=== PATIENT | female | born 1965 | race Caucasian/White ===

== ENCOUNTER → 2024-03-23 14:33 | Outpatient (REF) | payer BC, SELFPAY | LOC: WDC 14:33 | PROVIDERS: ATTENDING PHYSICIAN Obstetrics & Gynecology Gynecology; FAMILY PHYSICIAN Family Medicine | DX: Z12.31 Encounter for screening mammogram for malignant neoplasm of breast (principal); Z01.419 Encounter for gynecological examination (general) (routine) without abnormal findings | CPT/HCPCS: 77063; 77067 ==

== ENCOUNTER → 2024-07-16 10:03 | Outpatient (REF) | payer BC, SELFPAY | LOC: HWRAD 10:03 | PROVIDERS: ATTENDING PHYSICIAN Nurse Practitioner | DX: R35.0 Frequency of micturition (principal); N20.0 Calculus of kidney | CPT/HCPCS: 74176 ==

== ENCOUNTER → 2024-08-27 12:07 | Outpatient (REF) | payer BC, SELFPAY | LOC: MRI 3T 12:07 | PROVIDERS: ATTENDING PHYSICIAN Psychiatry & Neurology Neurology; FAMILY PHYSICIAN Family Medicine | DX: G35 Multiple sclerosis (principal) | CPT/HCPCS: 70553; 72156; A9575 ==

== ENCOUNTER → 2024-09-19 12:11 | Outpatient (REF) | payer BC, SELFPAY | LOC: MRI 3T 12:11 | PROVIDERS: ATTENDING PHYSICIAN Psychiatry & Neurology Neurology; FAMILY PHYSICIAN Family Medicine | DX: G35 Multiple sclerosis (principal) | CPT/HCPCS: 72157 ==

== ENCOUNTER → 2025-05-03 07:59 | Outpatient (REF) | payer BC, SELFPAY | LOC: WDC 07:59 | PROVIDERS: ATTENDING PHYSICIAN Obstetrics & Gynecology Gynecology; FAMILY PHYSICIAN Family Medicine | DX: Z12.39 Encounter for other screening for malignant neoplasm of breast (principal); Z12.31 Encounter for screening mammogram for malignant neoplasm of breast | CPT/HCPCS: 77063; 77067 ==

== ENCOUNTER 2025-05-14 19:05 | Emergency (ER) | payer BC, SELFPAY ==
[2025-05-14 19:05] VITALS: BMI 26.1
[2025-05-14 19:07] VITALS: BP 86/59
[2025-05-14 19:12] LABS: Glucose - Point of Care 141 mg/dl (70-99)
[2025-05-14 19:27] LABS: Venous Blood Gas B.E. 0.1 mmol/L (-4 to +4); Venous Blood Gas HCO3 27.7 mmol/L (22-27); Venous Blood Gas pCO2 55 mmHg (35-48); Venous Blood Gas pH 7.31 (7.32-7.43); Venous Blood Gas pO2 36 mmHg (30-50)
[2025-05-14 19:40] LABS: Lactic Acid 1.4 mmol/L (0.7-2.0)
[2025-05-14 19:41] LABS: ALT (SGPT) 35 U/L (0-35); AST (SGOT) 29 U/L (14-36); Albumin 4.8 g/dl (3.5-5.0); Alkaline Phosphatase 95 U/L (38-126); Blood Urea Nitrogen 23 mg/dl (7-17); Calcium 10.3 mg/dl (8.4-10.2); Carbon Dioxide 26 mmol/L (22-30); Chloride 103 mmol/L (98-107); Glucose 158 mg/dl (70-99); Lipase 41 U/L (23-300); Potassium 4.8 mmol/L (3.5-5.1); Sodium 138 mmol/L (135-145); Total Bilirubin 1.8 mg/dl (0.2-1.3); eGFR 57.88
[2025-05-14 19:47] LABS: B-Hydroxybutyrate 0.62 mmol/L (0.02-0.27)
[2025-05-14] MEDS: NSS 1000 IV (20:40)
[2025-05-14] MEDS: ZOFRAN 4 MG IV (21:06)
[2025-05-14 21:19] LABS: Creatine Phosphokinase 44 U/L (30-135)
[2025-05-14 21:20] LABS: % Basophils 0.4 % (0-2); % Immature Granulocytes 0.2 % (0-0.5); % Lymphocytes 2.7 % (20.5-51.1); % Monocytes 12.3 % (1.7-9.3); % Neutrophils 83.4 % (42.2-75.2); Absolute Basophils 0.1 10^3/uL (0-0.2); Absolute Eosinophils 0.1 10^3/uL (0-0.7); Absolute Lymphocytes 0.4 10^3/uL (1.2-3.4); Absolute Monocytes 1.6 10^3/uL (0.1-0.6); Hematocrit 40.3 % (37.0-47.0); Hemoglobin 14.1 g/dL (12.0-16.0); Mean Corpuscular Hgb 30.1 pg (27.0-31.0); Mean Corpuscular Volume 86.1 fL (81.0-99.0); Mean Platelet Volume 11.6 fL (7.4-10.4); Nucleated Red Blood Cells % 0 %; Platelet Count 252 10^3/uL (130-400); Red Blood Cell Count 4.68 10^6/uL (4.20-5.40); Red Cell Dist. Width 12.4 % (11.5-14.5); White Blood Cell Count 13.2 10^3/uL (4.8-10.8)
[2025-05-14 22:00] VITALS: BP 137/71
--- NOTE | 2025-05-14 22:13 | ED.GENMED ---
History of Present Illness
General
Chief Complaint: Abdominal Symptoms
Time Seen by Provider: 05/14/25 20:18
History of Present Illness
History of Present Illness:
60-year-old female with history of MS and diabetes presenting for nausea, vomiting, diarrhea. Patient reports that symptoms started this morning around 10 AM after she ate breakfast at [employer]. She has been unable to tolerate p.o. Denies any
blood in the vomit or the diarrhea. Denies any significant abdominal pain. Denies fever or sick contacts. Denies chest pain or difficulty breathing. Denies any abdominal surgeries. Notes some generalized weakness. Denies additional acute
medical complaints
Past History
Past History
ED Past Medical History: HTN, IDDM and Other (multiple sclerosis, probable relapsing remitting type)
ED Past Surgical History: Orthopedic
Social History
Tobacco: Non-smoker
Alcohol: None
Drug: None
Personal: Single
Employment: Employed ([employer])
Family History
Family History: Other (reviewed and noncontributory)
Phy Exam
Physical Exam
Physical Exam:
General: Well-appearing, no clinical signs of dehydration, nontoxic and in no acute distress
HEENT: protecting airway
Neck: appears supple
CV: Normal heart rate, regular rhythm
Resp: No accessory muscle use, no increased work of breathing
Abd: no distension
Extremities: No deformities, no swelling, no erythema
Neuro: alert, no focal neurologic deficit
: deferred
Rectal: deferred
Psych: Normal affect
Skin: Intact
Course
Orders/Labs/Results
Orders:
Orders
05/14/25 19:21
B-Hydroxybutyrate Urgent
Comprehensive Metabolic Panel Urgent
Creatine Phosphokinase Urgent
Comment: ADD ON
Lactic Acid Urgent
Lipase Urgent
Venous Blood Gas Urgent
%Oxygen/Room Air: room air
05/14/25 20:40
0.9% Sodium Chloride 1000 ml [Nss] 1,000 ml IV BOLUS
05/14/25 20:46
Add On- LAB Urgent
Tests Added?: CPK
Ondansetron Injectable [Zofran] 4 mg IV NOW STA
05/14/25 21:12
Complete Blood Count/With Diff Urgent
05/14/25 21:19
C DIFF [C difficile Antigen & Toxins] Urgent
CALVIN Source: Feces/Stool
Specimen Description:
Date Specimen was Collected: 05/14/25
Time Specimen was Collected: 21:18
Stool Culture Urgent
CALVIN Source: Feces/Stool
Specimen Description:
Date Specimen was Collected: 05/14/25
Time Specimen was Collected: 21:18
Abnormal Lab Results
05/14/25 05/14/25 05/14/25
19:10 19:21 21:12
WBC 13.2 H 10^3/uL
(4.8-10.8)
MPV 11.6 H fL
(7.4-10.4)
Absolute Neuts (auto) 11.0 H 10^3/uL
(1.4-6.5)
Absolute Lymphs (auto) 0.4 L 10^3/uL
(1.2-3.4)
Absolute Monos (auto) 1.6 H 10^3/uL
(0.1-0.6)
Neutrophils % 83.4 H %
(42.2-75.2)
Lymphocytes % 2.7 L %
(20.5-51.1)
Monocytes % 12.3 H %
(1.7-9.3)
VBG pH 7.31 L
(7.32-7.43)
VBG pCO2 55 H mmHg
(35-48)
VBG HCO3 27.7 H mmol/L
(22-27)
BUN 23 H mg/dl
(7-17)
Creatinine 1.1 H mg/dL
(0.6-1.0)
Glucose 158 H mg/dl
(70-99)
Calcium 10.3 H mg/dl
(8.4-10.2)
Total Bilirubin 1.8 H mg/dl
(0.2-1.3)
B-Hydroxybutyrate 0.62 H mmol/L
(0.02-0.27)
POC Glucose 141 H mg/dl
(70-99)
05/14/25 21:12
05/14/25 19:21
Vital Signs
Initial and Last Documented VS:
Initial Vital Signs
Temp Pulse Resp BP Pulse Ox
98.0 F 97 20 86/59 96
05/14/25 19:07 05/14/25 19:07 05/14/25 19:07 05/14/25 19:07 05/14/25 19:07
Last Documented Vital Signs
Temp Pulse Resp BP Pulse Ox
98.1 F 93 16 137/71 98
05/14/25 22:00 05/14/25 22:00 05/14/25 22:00 05/14/25 22:00 05/14/25 22:00
MDM/Problems Addressed
MDM/Problems Addressed:
60-year-old female with history of MS and diabetes presenting to the emergency department for nausea, vomiting, diarrhea, which started after eating breakfast at [employer] this morning. Vital signs significant for low blood pressure.
On exam, patient with mild dryness to her mucous membranes, otherwise no acute distress. Unremarkable cardiac, pulmonary abdominal exam. Patient afebrile, nontoxic. Symptoms appear consistent with viral gastroenteritis, suspected to be foodborne.
Will plan for laboratory analysis. Will treat with IV fluids and Zofran and reassess for improvement.
22:25 - Labs unremarkable. No sign of DKA dehydration. Mild elevation of beta hydroxy butyrate. On reassessment, patient notes that she is feeling better. Blood pressure is normalized. She is tolerating p.o. At this time feel that she is
stable for discharge with continued outpatient supportive therapy. Patient did have liquidy stool, sent for stool culture.
*Pulse Oximetry
SaO2: 98
Oxygen Mode of Delivery: Room air
*Critical Care Note
Total Time (30-74mins, 75-104mins- exclusive of procedures): Not Applicable
ED Attending Note
-
Portions of this chart may have been created with voice recognition software.� Occasional wrong word or��sound alike� substitutions may have occurred due to the inherent limitations of voice recognition software.
Discharge Plan
Departure
Prescriptions:
No Action
Insulin Pump [Patient's Own Insulin Pump:] 1 UNITS Pump.Resvr
0 ea SC .CONTINUOUS
Patient Comments:
05/14/25, pt. uses Novolog insulin, per pt., she uses roughly '13 units a day' and replaces her cartridge every 3 days and patient has a Dexcom Sensor. Pt. changed her insulin yesterday (05/13/2025). Pt. normally changes her insulin when she has
around 20 units left in her cartridge.
Kesimpta Pen 20 mg/0.4 mL pen injector
20 mg SC MONTHLY
acetaminophen [Tylenol Extra Strength] 500 mg Tablet
500 mg PO DAILYPRN PRN (Reason: mild pain)
Patient Comments:
05/14/2025, takes with her Kesimpta per pt.
ferrous sulfate 325 mg (65 mg iron) Tablet
325 mg PO DAILY PRN (Reason: headaches)
Ex-Lax Maximum Strength 25 mg Tablet
25 mg PO DAILY PRN (Reason: constipation)
carboxymethylcellulose sodium [Refresh] 1 % Drops, Liquid Gel
1 drp BOTH EYES QIDPRN PRN (Reason: dry eyes)
cholecalciferol (vitamin D3) 100 mcg (4,000 unit) Tablet
100 mcg PO DAILY
collagen
2 tbsp PO DAILY
Patient Comments:
05/14/2025, 'SpoiledChild' collagen supplement.
Referrals:
Dona Trejo DO [Family Provider, Family Practice]
Interventions
Interventions:
*Risk Screen - Suicide Last Done: 05/14/25 22:00
*General Assessment Last Done: 05/14/25 19:07
*Neglect/Abuse Screening Last Done: 05/14/25 22:00
*ED- Fall Risk Assessment Last Done: 05/14/25 22:00
*ED COVID-19 Vaccine History Last Done: 05/14/25 22:00
BK-Cfdelb-Cobexxdvoh Assessment Last Done: 05/14/25 22:00
Discharge Date and Time
Print Language: KHMER
== END 2025-05-14 22:58 | disposition home or self-care (01) ==
LOC: EMR 19:05
PROVIDERS: EMERGENCY PHYSICIAN Student in an Organized Health Care Education/Training Program; FAMILY PHYSICIAN Family Medicine
DX: A08.4 Viral intestinal infection, unspecified (principal); E11.9 Type 2 diabetes mellitus without complications; G35 Multiple sclerosis; I10 Essential (primary) hypertension; Z79.4 Long term (current) use of insulin
CPT/HCPCS: 96374; 96361; 99284; 80053; 82010; 82550; 82805; 82962; 83605; 83690; 85025; 87045; 87046; 87324; 87427; 87449

== ENCOUNTER 2025-08-08 10:53 | Emergency (ER) | payer BC, SELFPAY ==
[2025-08-08 10:59] VITALS: BP 193/94
--- NOTE | 2025-08-08 11:31 | ED.GENMED ---
History of Present Illness
General
Chief Complaint: Chest Pain
Source: patient
Exam Limitations: none
Time Seen by Provider: 08/08/25 11:30
History of Present Illness
History of Present Illness:
60-year-old female with history of multiple sclerosis and diabetes presents with intermittent chest discomfort over the past 2 weeks. She spoke with the cardiology team today and advised to come here for evaluation. She also notes shortness of
breath with exertion. She denies any recent travel or surgery. The pain is not pleuritic but tends to be more so on the left side. No known injury. The pain is made worse if she lays flat but is better when she is upright and walking.
Past History
Past History
ED Past Medical History: HTN, IDDM and Other (multiple sclerosis, probable relapsing remitting type)
ED Past Surgical History: Orthopedic
Social History
Tobacco: Non-smoker
Alcohol: None
Drug: None
Personal: Single
Employment: Employed ([employer])
Family History
Family History: Other (reviewed and noncontributory)
Phy Exam
Physical Exam
Physical Exam:
General: Well-appearing female no acute respiratory distress HEENT: Normal cephalic atraumatic
Heart: Regular rate and rhythm
Lungs: Clear no wheeze
Extremities: No cyanosis or edema
Scores
Heart Score for Chest Pain Patients
STEMI patient?: No
History: Slightly or Non-Suspicious
ECG: Normal
Age: >45 - <65 years
Risk Factors: 1 or 2 Risk Factors
Troponin: </= Normal Limit
Heart Score for Chest Pain Patients: 2
Heart Score Risk: 2.5% MACE over next 6 weeks
Course
Orders/Labs/Results
Orders:
Orders
08/08/25 10:53
EKG [Electrocardiogram (*1)] Urgent
Reason for Study: Chest Pain
08/08/25 10:54
EKG- Treatment ONCE
08/08/25 12:17
Complete Blood Count/With Diff Urgent
08/08/25 12:18
Comprehensive Metabolic Panel Urgent
NT-proBNP Urgent
Troponin I Urgent
08/08/25 12:19
D-Dimer Urgent
08/08/25 13:50
CR Chest - 2 Views Urgent
Comment:
Reason For Exam: chest pain
Abnormal Lab Results
08/08/25 08/08/25
12:17 12:18
MPV 11.2 H fL
(7.4-10.4)
Glucose 116 H mg/dl
(70-99)
08/08/25 12:17
08/08/25 12:18
Vital Signs
Initial and Last Documented VS:
Initial Vital Signs
Temp Pulse Resp BP Pulse Ox
97.9 F 84 22 193/94 100
08/08/25 10:59 08/08/25 10:59 08/08/25 10:59 08/08/25 10:59 08/08/25 10:59
Last Documented Vital Signs
Temp Pulse Resp BP Pulse Ox
97.9 F 82 12 166/75 99
08/08/25 10:59 08/08/25 13:45 08/08/25 13:45 08/08/25 13:00 08/08/25 13:45
MDM/Problems Addressed
Differential Diagnosis Includes:
Chest pain. Consider ACS versus musculoskeletal pain versus PE versus heart failure
Currently on my exam she is pain-free. EKG reviewed. Will check D-dimer troponin and BNP.
*Pulse Oximetry
SaO2: 100
Oxygen Mode of Delivery: Room air
Patient hypoxic: no
*Critical Care Note
Total Time (30-74mins, 75-104mins- exclusive of procedures): Not Applicable
Update Note
Update Note:
EKG personally reviewed and demonstrates normal sinus rhythm with a rate of 84 no ischemic changes
Workup here essentially unremarkable. Labs are normal including troponin. Patient has had weeks worth of chest discomfort. 1 troponin is sufficient. D-dimer undetectable. Chest x-ray clear
Atypical chest discomfort with negative workup. No indication for admission but will discharge her with cardiology follow-up
ED Attending Note
-
Portions of this chart may have been created with voice recognition software.� Occasional wrong word or��sound alike� substitutions may have occurred due to the inherent limitations of voice recognition software.
Discharge Plan
Departure
Patient Disposition: Home (Routine Discharge)
Date of Disposition: 08/08/25
Time of Disposition: 15:09
Patient with high blood pressure during this ER visit?: No
Discharge Problem:
Chest pain
Instructions: Chest Pain DCA Follow Up
Prescriptions:
No Action
Insulin Pump [Patient's Own Insulin Pump:] 1 UNITS Pump.Resvr
0 ea SC .CONTINUOUS
Patient Comments:
05/14/25, pt. uses Novolog insulin, per pt., she uses roughly '13 units a day' and replaces her cartridge every 3 days and patient has a Dexcom Sensor. Pt. changed her insulin yesterday (05/13/2025). Pt. normally changes her insulin when she has
around 20 units left in her cartridge.
Kesimpta Pen 20 mg/0.4 mL pen injector
20 mg SC MONTHLY
acetaminophen [Tylenol Extra Strength] 500 mg Tablet
500 mg PO DAILYPRN PRN (Reason: mild pain)
Patient Comments:
05/14/2025, takes with her Kesimpta per pt.
ferrous sulfate 325 mg (65 mg iron) Tablet
325 mg PO DAILY PRN (Reason: headaches)
Ex-Lax Maximum Strength 25 mg Tablet
25 mg PO DAILY PRN (Reason: constipation)
carboxymethylcellulose sodium [Refresh] 1 % Drops, Liquid Gel
1 drp BOTH EYES QIDPRN PRN (Reason: dry eyes)
cholecalciferol (vitamin D3) 100 mcg (4,000 unit) Tablet
100 mcg PO DAILY
collagen
2 tbsp PO DAILY
Patient Comments:
05/14/2025, 'SpoiledChild' collagen supplement.
ondansetron 4 mg Tablet,Disintegrating
4 mg PO TIDPRN PRN (Reason: nausea/vomiting) Qty: 4 0RF
Referrals:
Dona Trejo DO [Family Provider, Family Practice]
Activity Restrictions/Additional Instructions:
Return here for worsening symptoms otherwise follow-up with cardiology.
Interventions
Interventions:
*Risk Screen - Suicide Last Done: 08/08/25 10:59
*General Assessment Last Done: 08/08/25 10:59
*Neglect/Abuse Screening Last Done: 08/08/25 10:59
*ED- Fall Risk Assessment Last Done: 08/08/25 12:21
*ED COVID-19 Vaccine History Last Done: 08/08/25 10:59
ED- Cardiac Assessment Last Done: 08/08/25 12:31
Discharge Date and Time
Print Language: FRENCH
[2025-08-08 11:39] VITALS: BP 177/73
[2025-08-08 12:10] VITALS: BP 173/71
[2025-08-08 12:21] VITALS: BMI 28.1
--- NOTE | 2025-08-08 12:22 | EDRN ---
Pt states upon calling her nurse assessor sent pt to ER for a pain across her chest that has been intermittent for past 3 weeks. Pt having a lot of fatigue more so than her baseline, has MS, for past 3 weeks. Pain described as pressure, none now. Pt
having nausea and dizziness also post eating past couple of days. Pain goes up to 2/10 at its worst. Pt also has bilateral neck and shoulder pain that started a month ago, intermittent, 1/10 now, goes up to 7/10, sharp pain, neck cracks alot pt adds
too.
[2025-08-08 12:29] LABS: Hematocrit 39.7 % (37.0-47.0); Hemoglobin 13.3 g/dL (12.0-16.0); Mean Corp Hgb Conc. 33.5 g/dL (33.0-37.0); Mean Corpuscular Volume 85.6 fL (81.0-99.0); Nucleated Red Blood Cells % 0 %; Platelet Count 231 10^3/uL (130-400); Red Cell Dist. Width 12.1 % (11.5-14.5)
[2025-08-08 12:45] LABS: ALT (SGPT) 29 U/L (0-35); AST (SGOT) 32 U/L (14-36); Albumin 4.5 g/dl (3.5-5.0); Alkaline Phosphatase 74 U/L (38-126); Blood Urea Nitrogen 17 mg/dl (7-17); Calcium 9.5 mg/dl (8.4-10.2); Carbon Dioxide 30 mmol/L (22-30); Chloride 103 mmol/L (98-107); Estimated Creatinine Clearance 85 ml/min; Glucose 116 mg/dl (70-99); Potassium 4.3 mmol/L (3.5-5.1); Sodium 135 mmol/L (135-145); Total Protein 7.1 g/dl (6.3-8.2); eGFR > 60.00
[2025-08-08 12:58] LABS: Troponin I < 0.012 ng/ml
[2025-08-08 13:00] VITALS: BP 166/75
[2025-08-08 13:17] LABS: Glucose - Point of Care 78 mg/dl (70-99)
--- NOTE | 2025-08-08 13:20 | EDRN ---
Pt called ED PCT to room saying her sugar is low. Accucheck done and glucose was 78. ED PCT per this RN's request checked w/ C. Waqas COTTER and he said pt could have some orange juice and pt is drinking an orange crush at this time and had a bite
of a roberto carlos cracker.
[2025-08-08 13:34] LABS: D-Dimer < 0.27 ug/mlFEU (0.00-0.50)
[2025-08-08 14:00] VITALS: BP 164/61
[2025-08-08 15:00] VITALS: BP 148/60
--- NOTE | 2025-08-08 15:10 | EDRN ---
Angel Jameson PA in to see pt at this time.
== END 2025-08-08 15:30 | disposition home or self-care (01) ==
LOC: EMR 10:53
PROVIDERS: Physician Assistant; EMERGENCY PHYSICIAN Emergency Medicine; FAMILY PHYSICIAN Family Medicine
DX: R07.89 Other chest pain (principal); R06.02 Shortness of breath; E11.9 Type 2 diabetes mellitus without complications; I10 Essential (primary) hypertension; G35 Multiple sclerosis; Z79.4 Long term (current) use of insulin
CPT/HCPCS: 99285; 71046; 80053; 82962; 83880; 84484; 85025; 85379; 93005

== ENCOUNTER → 2025-11-03 06:35 | Outpatient (REF) | payer BC, SELFPAY | LOC: MRI 06:35 | PROVIDERS: ATTENDING PHYSICIAN Psychiatry & Neurology Neurology; FAMILY PHYSICIAN Family Medicine | DX: G35.A Relapsing-remitting multiple sclerosis (principal) | CPT/HCPCS: 70551; 72141 ==

== ENCOUNTER → 2025-11-04 06:42 | Outpatient (REF) | payer BC, SELFPAY | LOC: PAVMRI 06:42 | PROVIDERS: ATTENDING PHYSICIAN Psychiatry & Neurology Neurology; FAMILY PHYSICIAN Family Medicine | DX: G35.D Multiple sclerosis, unspecified (principal) | CPT/HCPCS: 72146 ==

== ENCOUNTER 2025-11-24 06:31 | Day surgery (SDC) | payer BC, SELFPAY ==
[2025-11-24 10:30] LABS: Glucose - Point of Care 254 mg/dl (70-99)
[2025-11-24 11:45] LABS: Glucose - Point of Care 192 mg/dl (70-99)
== END 2025-11-24 12:28 | disposition home or self-care (01) ==
LOC: GI 06:31
PROVIDERS: ATTENDING PHYSICIAN Internal Medicine
DX: Z12.11 Encounter for screening for malignant neoplasm of colon (principal); D12.0 Benign neoplasm of cecum; D12.2 Benign neoplasm of ascending colon; E10.9 Type 1 diabetes mellitus without complications
CPT/HCPCS: 45380; 82962; 88305